=== PATIENT | female | born 2005 | race Caucasian/White ===

== ENCOUNTER 2023-09-11 13:31 | Emergency (ER) | payer OTHER, SELFPAY ==
--- NOTE | 2023-09-11 13:48 | ED.NAVMDI ---
HPI - Nausea/Vomiting/Diarrhea General Chief complaint: Nausea/Vomiting/Diarrhea Stated complaint: Diarrhea Time Seen by Provider: 09/11/23 13:48 Source: patient Mode of arrival: ambulatory Limitations: no limitations History of Present Illness HPI Narrative: Michelle is a 18-year-old female patient presenting to the clinic today with complaints of bloody diarrhea stools and abdominal cramping since last night. She reports she has had 2 bloody stools. One last night and 1 this morning approximately 1 hour prior to arrival. She reports that 75-80% of the stool was blood today. Reports that the blood is dark red history of hemorrhoids. She is finishing up her menses-not having any vaginal bleeding at this time. Denies hematuria. No fever, chills, or back pain. Related Data Home Medications Medication Instructions Recorded Confirmed albuterol sulfate 90 mcg/actuation 2 puff inhalation DAILY 09/11/23 09/11/23 aerosol inhaler fluoxetine 40 mg capsule 40 mg PO DAILY 09/11/23 09/11/23 norgestimate 0.25 mg-ethinyl 1 tablet PO DAILY 09/11/23 09/11/23 estradiol 35 mcg tablet (Estarylla) Allergies Allergy/AdvReac Type Severity Reaction Status Date / Time Sulfa (Sulfonamide Allergy Hives Verified 09/11/23 13:50 Antibiotics) Review of Systems Review of Systems: Pertinent positives per HPI. Patient denies any fever, chills, rash, headache, visual changes, dizziness, cough, runny nose, sore throat, shortness of breath, chest pain, palpitations, nausea, vomiting, constipation, or any urinary issues. PMFSH Comments At the time of my signature, I reviewed and agree with the nursing past medical, surgical, social, and family history. There is no relevant family history pertinent to the patient complaint. Exam Narrative: General: Well-developed, well nourished, in no apparent distress. Head: Normocephalic, atraumatic. Cardio: Regular rate and rhythm, s1 and s2 normal, no murmur appreciated. Resp: Clear to auscultation bilaterally, no rhonchi, rales, wheezing or rubs. Abdomen: Soft, pliable, bowel sounds present in all quadrants, generalized-tender to palpation, no organomegly, no CVAT tenderness. Course Course Emergency Course: Portions of this record may have been created with voice recognition software. Level of Care: Express Care Visit Vital Signs Vital signs: Vital signs reviewed Transfer Transfered to: [facility]: Other (Private car) Transfer rationale: gi bleeding/abdomen cramping Accepting physician: Dr. Graham Transfer comments: private car MDM - Nausea/Vomiting/Diarrhea MDM Narrative Medical decision making narrative: At the time of visit patient is resting comfortably on the exam table. Patient has generalized abdominal tenderness and reporting bloody stools. Recommend transfer to the ER for further evaluation. Contacted at [facility] and report was given for continuity of care. Dr. Graham accepts patient for transfer. Differential Diagnosis Differential diagnosis: Likely traveler's diarrhea, food poisoning, gastroenteritis, dehydration and other (Acute diarrhea, IBS) Discharge Plan Discharge Clinical Impression: Acute GI bleeding, Abdominal cramping Patient Disposition: Acute Care Hospital Condition: Stable Prescriptions: No Action fluoxetine 40 mg capsule 40 mg PO DAILY norgestimate-ethinyl estradiol [Estarylla] 0.25-35 mg-mcg tablet 1 tablet PO DAILY albuterol sulfate 90 mcg/actuation HFA aerosol inhaler 2 puff INHALATION DAILY Follow-up/Referrals: PHYSICIAN,AUDIO DIRECTOR [Primary Care Provider] - Time of Disposition: 14:04 Quality NIHSS Nursing Documentation ED NIHSS nursing documentation: reviewed/agree
[2023-09-11 13:53] VITALS: BP 120/82; PULSE 83; RESP 16; TEMP 36.8; O2SAT 98
== END 2023-09-11 14:05 | disposition short-term general hospital (02) ==
PROVIDERS: Emergency Provider Nurse Practitioner Family
DX: K92.2 Gastrointestinal hemorrhage, unspecified (principal); R10.9 Unspecified abdominal pain; J45.909 Unspecified asthma, uncomplicated; F32.A Depression, unspecified
CPT/HCPCS: 99202; G0463